=== PATIENT | male | born 1990 | race American Indian/Alaskan Native ===

== ENCOUNTER 2021-05-04 21:13 | Emergency (ER) | payer OTHER ==
[2021-05-04 21:17] VITALS: BP 120/73
[2021-05-04] MEDS ORDERED: IBUPROFEN 800 MG TAB PO STA (22:38)
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
== END 2021-05-05 00:58 | disposition home or self-care (01) ==
LOC: ED 21:13
DX: S63.501A Unspecified sprain of right wrist, initial encounter (principal); R51.9 Headache, unspecified; V49.88XA Car occupant (driver) (passenger) injured in other specified transport accidents, initial encounter; Y93.89 Activity, other specified; Y92.89 Other specified places as the place of occurrence of the external cause; Y99.8 Other external cause status
CPT/HCPCS: 99283